=== PATIENT | female | born 2005 | race Caucasian/White ===

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

== ENCOUNTER 2025-06-05 10:31 | Emergency (ER) | payer OTHER, SELFPAY ==
--- OUTSIDE RECORDS SUMMARY | 2024-03-01 08:45 | XMS_ITS ---
Author Organization [facility] Address [address] [place] [address] Care Team Providers Care Bird Raiser Name Role Phone Jessica Kinney Primary Care Provider Marj Bertrand [phone] Allergies No Known Allergies REASON FOR VISIT F/U ER for bleeding Encounters Encounter Location Date Provider Diagnosis [place] [address] [place] [address] 03/01/2024 Marj Bertrand Plan Of Treatment No Information Progress Notes * Gabrielle BETHDOB:[birth year] (20 yo F)Acc No.[id number]:03/01/2024 Progress Notes Patient: Gabrielle DOWNEY Provider: Piper Bertrand CNP :2005 A ge:18 Y S ex:Female Date:03/01/2024 Address:[address] [id number] Pcp:Jessica Kinney Subjective: * Chief Complaints: * 1 . F/U ER for bleeding. * Medical History: M edical History Verified. 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 B irth Control: L iletta. S exual Activity C urrently sexually active, male partner. S exually Tranmitted Disease (STD)?None. A bnormal Pap Smear N ever Had One. D enies H/O Colposcopy. * OB History: G PAL: G [id number]. * Allergies: N .K.D.A. Objective: * Vitals: Assessment: Plan: * Treatment: * Preventive Medicine: YOUR PREVENTIVE WELLNESS PLAN: B reast Cancer Screening (Mammogram): M y last mammogram was done on: N ever, Under 40yrs. C ervical Cancer Screening (Pap Smear): M y last Pap smear was done on: N ever, Under 21 years old. O steoporosis Screening (Bone Density Measurement): M y last bone density was done on: N ever, Under 65yr. C olorectal Cancer Screening: L ast Done Colonoscopy N ever, Under 45yr. D epression Screening: S creening for depression was last done on: 0 01/30/2024. * Images: Billing Information: * Visit Code: * Procedure Codes: * Electronic signature of Jeronimo Bertrand CNP on 06/05/2025 at 10:33 AM CDT Sign off status: Pending * Provider: Piper Bertrand CNP Date: 03/01/2024 Generated for Magnus millan/Jony/Martaitting on: 0 06/05/2025 10:33 AM CDT
--- OUTSIDE RECORDS SUMMARY | 2024-03-01 10:00 | XMS_ITS ---
Author Organization [facility] Address [address] [place] [address] Care Team Providers Care Personal Banker Name Role Phone Jessica Kinney Primary Care Provider Jessica Salvador [phone] Encounters Encounter Location Date Provider Diagnosis [address] [id number] 03/01/2024 Jessica Salvador Plan Of Treatment No Information Progress Notes * Gabrielle BETHDOB:[birth year] (20 yo F)Acc No.[id number]:03/01/2024 Patient: Gabrielle DOWNEY Provider: Kristian Salvador DO :2005 A ge:18 Y S ex:Female Date:03/01/2024 Address:[address] [id number] Pcp:Jessica Kinney Subjective: * Chief Complaints: * * Medical History: Objective: * Vitals: Assessment: Plan: * Treatment: * Images: Billing Information: * Visit Code: * Procedure Codes: * Electronic signature of Cely Salvador DO on 06/05/2025 at 10:33 AM CDT Sign off status: Pending * Provider: Kristian Salvador DO Date: 03/01/2024 Generated for Printi ng/Faxing/eTransmitting on: 0 06/05/2025 10:33 AM CDT
--- OUTSIDE RECORDS SUMMARY | 2024-03-01 10:45 | XMS_ITS ---
Author Organization [facility] Address [address] [place] [address] Care Team Providers Care Stenciler Name Role Phone Jessica Kinney Primary Care Provider Jessica Salvador Unavailable [phone] Allergies No Known Allergies REASON FOR VISIT IUD placed 02/14/24, heavy bleeding ultrasound prior K A Medications Medication SIG (Take, Route, Fr equency, Duration) Notes Start Date End Date Status Liletta Active Valtrex 500 MG 1 tablet Orally Once a day; Duration: 10 days 01/31/2024 Active Social History Tobacco Use: Social History Observation Description Date Details (start date - stop date) Never Smoker NA - NA Tobacco Control (Standard) Question Answer Notes Tobacco use: Nonsmoker Encounters Encounter Location Date Provider Diagnosis [facility] [address] [id number] 03/01/2024 Jessica Salvador Plan Of Treatment No Information Progress Notes * Gabrielle BETHDOB:[birth year] (20 yo F)Acc No.[id number]:03/01/2024 Progress Notes Patient: Gabrielle DOWNEY Provider: Kristian Salvador DO :2005 A ge:18 Y S ex:Female Date:03/01/2024 Address:[facility] [address] [id number] Pcp:Jessica Kinney Subjective: * Chief Complaints: * 1 . IUD placed 02/14/24, heavy bleeding ultrasound prior JMK RMA. * Medical History: M edical History Verified. 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 B irth Control: L iletta. S exual Activity C urrently sexually active, male partner. S exually Tranmitted Disease (STD) N one. A bnormal Pap Smear N ever Had One. D enies H/O Colposcopy. * OB History: G PAL: G [id number]. * Surgical History: D enies Past Surgical History. * Hospitalization/Major Diagno stic Procedure: D enies Past Hospitalization. * Family History: N on-Contributory. * Social History: T obacco Use: T obacco Control (Standard) T obacco use: N onsmoker D rugs/Alcohol: C affeine I ntake: 1 -2 cups per day Do you smoke marijuana?: Denies. Do you drink alcohol?: Yes. M iscellaneous: E xercise: Patient exercises. Marital status: single. * Medications: T javid Toth , Taking Valtrex 500 MG Tablet 1 tablet Orally Once a day , Discontinued NuvaRing , Discontinued Cytotec 200 MCG Tablet 1 tablet Orally once the night prior to procedure , Medication List reviewed and reconciled with the patient * Allergies: N .K.D.A. Objective: * Vitals: Assessment: Plan: * Treatment: * Preventive Medicine: YOUR PREVENTIVE WELLNESS PLAN: B reast Cancer Screening (Mammogram): My last mammogram was done on: N ever, Under 40yrs C ervical Cancer Screening (Pap Smear): My last Pap smear was done on: N ever, Under 21 years old O steoporosis Screening (Bone Density Measurement): My last bone density was done on: N ever, Under 65yr C olorectal Cancer Screening: Last Done Colonoscopy N ever, Under 45yr D epression Screening: Screening for depression was last done on: 0 01/30/2024 * Images: Billing Information: * Visit Code: * Procedure Codes: * Electronic signature of Cely Salvador DO on 06/05/2025 at 10:33 AM CDT Sign off status: Pending * Provider: Kristian Salvador Date: 0 03/01/2024 Generated for Magnus millan/Jony/Yomi on: 0 06/05/2025 10:33 AM CDT
[2025-06-05] VITALS (8 sets, daily range): BP systolic 103–126; BP diastolic 60–76; PULSE 110–121; RESP 25; TEMP 38.3–38.8; O2SAT 95–100; BMI 21.8
--- OUTSIDE RECORDS SUMMARY | 2025-06-05 10:33 | XMS_ITS | Clinical Summary ---
Author Organization [place] Address [address] [place] [address] Care Team Providers Care Call Or Contact Centre Manager Name Role Phone No Ref-Primary, Physician Primary Care Provider Mariama Quan DEPUTY INSURANCE COMMISSIONER Unavailable [phone] Allergies No known active allergies Medications omeprazole (PRILOSEC) [address] capsule Take 20 mg by mouth daily Active Active Problems No known active problems Social History Tobacco Use Types Packs/Day Years Used Date Smoking Tobacco: Never Smokeless Tobacco: Never Tobacco Cessation:Counseling Given: Not Answered Adolescent Education Answer Date Record ed Getting School Help Needed Not on file 06/10 Comments No Sex and Gender Information Value Date Recorded Sex Assigned at Not on file Legal Sex Female 4:57 PM CDT Gender Identity Not on file Sexual Orientation Not on file Last Filed Vital Signs Vital Sign Reading Time Taken Comments Blood Pressure 117/75 02/28/2024 2:06 AM CDT Pulse 86 02/28/2024 2:06 AM CDT Temperature 37.6 C (99.7 F) 02/27/2024 10:25 PM CDT Respiratory Rate 16 02/27/2024 10:25 PM CDT Oxygen Saturation 99% 02/28/2024 2:06 AM CDT Inhaled Oxygen Concentration - - Weight 59.7 kg (131 lb 9.6 oz) 02/27/2024 10:25 PM CDT Height 167.6 cm (5' 6) 02/27/2024 10:25 PM CDT Body Mass Index 21.24 02/27/2024 10:25 PM CDT Plan of Treatment Health Maintenance Due Date Last Done Comments ADVANCE CARE PLANNING 2005 ANNUAL REVIEW OF HM ORDERS 2005 CHLAMYDIA SCREENING 2005 HIV SCREENING 2020 HEPATITIS C SCREENING 2023 YEARLY PREVENTIVE VISIT 02/28/2024 02/27/2023, 07/12 PHQ-2 (once per calendar year) 2024 COVID-19 VACCINE (3 - season) 2025 08/08/2021, 04/29/2021 INFLUENZA VACCINE (#1) 2025 , 07/12/2021, 07/09/2018, Additional history exists DTAP/TDAP/TD VACCINE (7 - Td or Tdap) 04/12/2027 04/12/2017, 04/02/2010, 09/04/2006, Additional history exists ZOSTER VACCINE (1 of 2) 2055 PNEUMOCOCCAL VACCINE: PEDIATRICS (0 to 5 YEARS) AND AT-RISK PATIENTS (6 to 49 YEARS) Aged Out 03/10/2006, 2005, 2005, Additional history exists No longer eligible based on patient's age to complete this topic HEPATITIS B VACCINE Completed 09/04/2006, 2005, 2005, Additional history exists MENINGITIS VACCINE Completed 07/12/2021, 04/12/2017 HPV VACCINE Completed 03/25/2022, 06/19, 04/20/2020 MENINGITIS B VACCINE Completed 05/04/2023, 02/28/20 23 Insurance [employer] Care Teams Call Or Contact Centre Manager Relationship Specialty Start Date End Date No Ref-Primary, Physician PCP - General 07/22/22 Mariama Quan NP [address] [place] [address] Assigned PCP 03/10/24
--- OUTSIDE RECORDS SUMMARY | 2025-06-05 10:34 | XMS_ITS | Clinical Summary ---
Author Organization [facility] Address [address] [place] [id number] Care Team Providers Care Spark Tester Name Role Phone Misty Kwon MD Primary Care Provider Allergies No known active allergies Medications spironolactone (ALDACTONE) 25 mg tablet Take 50 mg by mouth once daily in the morning. 4 Active tretinoin (RETIN-A) 0.025 % cream Apply topically to affected area(s) at bedtime. 4 Active levonorgestre1 (Liletta) 20.4 mcg/24 hr (8 yrs) 52 mg intrauterine device (IUD) Inject 1 Device intrauterine every 6 years. 4 Active clindamycin (CLEOCIN-T) 1 % lotion Apply topically to affected area(s) two times daily. 4 Active hydrOXYzine HCL (ATARAX) 25 mg tabletIndication s:Anxiety with flying Take 1-2 Tablets (25-50 mg) by mouth every 8 hours if needed for Anxiety. 25 Tablet 4 Active famotidine (PEPCID) 20 mg tabletIndication s:Abdominal pain, generalized Take 1 Tablet (20 mg) by mouth 2 times daily if needed for GI Upset. 90 Tablet 1 4 Active fluticasone (50 mcg per actuation) nasal solution (FLONASE)Indicat ions:Nasal congestion SHAKE LIQUID AND USE 2 SPRAYS IN EACH NOSTRIL DAILY 16 g Active Active Problems Problem Noted Date Diagnosed Date Esophagogastric junction outflow obstruction IUD (intrauterine device) in place 07/05/2024 Resolved Problems Problem Noted Date Diagnosed Date Resolved Date Laceration of head 03/19/2009 8 Overview (03/19/2009): 03/14/07 FOREHEAD URI (upper respiratory infection) 03/19/2009 01/26/2018 Otitis media 03/19/2009 01/26/2018 Screening for lead poisoning 03/19/2009 01/26/2018 Overview (03/19/2009): 03/10/06 Lead <3 Encounters Date Type Department Care Team Description 05/30/2025 7:15 AM CDT Telemedicine [facility] [address] [place] [address] Kiya Chavez [facility] Individual Therapy 05/30/2025 Travel 05/02/2025 9:00 AM CDT Office Visit [facility] [address] [place] [address] Kriss Parker [facility] Mental Health Consultants Visit; Trmt Plan 05/02/2025 Travel 04/28/2025 Travel 04/02/2025 Transcribe Orders Customer Experience [facility] [phone] [place] Cochran DO 04/02/2025 Nurse Triage [place] [id number] [facility] [address] [place] [address] Misty Kwon MD Abdominal Pain 03/31/[address] [place], [place] [phone] Misty Kwon MD Lab (TB/Mantoux test) 03/29/2025 12:20 PM CDT Office Visit [facility] [address] [place] [phone] Ivana Sahni MD Influenza Like Illness (Sore throat x couple days, productive cough, diarrhea x 1 week and nasal congestion ) 03/29/2025 Travel from Last 3 Months Immunizations Immunization Administration Dates Next Due COVID-19 vaccine (Lionseek-Bio NTech 30mcg/0.3mL) PF, MDV 04/29/2021 DTaP-HIB (TriHIBIT) 09/04/2006 [id number] (Pediarix) 09/04/2006,08/19,2005,05/09 DTaP-IPV (Kinrix) 04/02/2010 HIB PRP-OMP (PedvaxHIB) 09/04/2006,2005, HPV 9 (Gardasil 9) 03/25/2022,07/12/2021, 020 Hepatitis A (Peds) 03/27/2007,03/10/2006 INFLUENZA, IIV3 PF (AGE >= 6 MO) 07/08/2024 Influenza, IIV3 (Age 6-35 mos) 11/22/2007,2006 Influenza, IIV3 (Age >=3 years) 08/12/20 08,08/12/2008,11/22/2007,10/27,2005 Influenza, IIV4 07/01/2022,07/12/2021,07/09/2018 Influenza,LAIV3 Live Intrana dawson (Flumist) 05/30/2014,08/12/2008 Influenza,LAIV4 Live Intrana dawson (Flumist) 05/30/2014,08/12/2008 MENINGOCOCCAL VACCINE 2 VIAL 2MO-55YO (MENVEO) 07/12/2021,04/12/2017 MMR 04/02/2010 MMRV 09/04/2006 Meningococcal B 05/04/2023,02/27/2023 Pneumococcal conj 7-Valent (Prevnar 7) 0 03/10/2006,2005,2005,05/09 Tdap 04/12/2017 Varicella Vaccine 04/02/2010,09/04/2006 Family History Medical History Relation Name Comments Asthma Brother Good Health Brother Allergies Father Diabetes Father Heart failure Father Hypertension Maternal Grandfather Cancer Maternal Grandmother Diabetes Maternal Grandmother Asthma Mother Cancer Paternal Grandfather Diabetes Paternal Grandfather Hyperlipidemia Paternal Grandfather High Cholesterol Diabetes Paternal Grandmother Heart failure Paternal Grandmother Relation Name Status Comments Brother Father Maternal Grandfather Maternal Grandmother Mother Paternal Grandfather Paternal Grandmother Social History Tobacco Use Types Packs/Day Years Used Date Smoking Tobacco: Never Smokeless Tobacco: Never Alcohol Use Standard Drinks/Week Comments Yes 0 (1 standard drink = 0.6 oz pur e alcohol) socially/weekends PHQ-2 Answer Date Recorded PHQ-2 TOTAL SCORE 1 05/30/2025 Social Connections Answer Date Recorded Do you often feel lonely or isolated from those around you? 0 03/29/2025 Financial Resource Strain Answer Date R ecorded Difficulty of Paying Living Expenses 3 03/29/2025 Difficulty of Paying Living Expenses Not on file 03/29/2025 Food Insecurity Answer Date Recorded Do you worry your food will run out before you are able to buy more? 1 03/29/2025 Transportation Needs Answer Date Record ed Does lack of transportation keep you from medica l appointments? 1 03/29/2025 Does lack of transportation keep you from work, meetings or getting things that you need? 1 03/29/2025 Housing Stability Answer Date Recorded What is your housing situation today? 1 03/29/2025 Utilities Answer Date Recorded Do you have trouble paying f or utilities (for example, heat, electricity, water, phone)? 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 Sexual Orientation Not on file Obstetrics History Last Filed Vital Signs Vital Sign Reading Time Taken Comments Blood Pressure 137/74 03/29/2025 12:31 PM CDT Pulse 86 03/29/2025 12:31 PM CDT Temperature 37.2 C (99 F) 03/29/2025 12:31 PM CDT Respiratory Rate 16 03/29/2025 12:3 1 PM CDT Oxygen Saturation 99% 03/29/2025 12: 31 PM CDT Inhaled Oxygen Concentration - - Weight 61.1 kg (134 lb 12.8 oz) 07/08/2024 3:19 PM CDT Height 169.2 cm (5' 6.61) 07/08/2024 3:19 PM CD T Body Mass Index 21.36 07/08/2024 3:19 PM CDT Plan of Treatment Upcoming Encounters Date Type Department Care Team (Late st Contact Info) Description 06/27/2025 7:15 AM CDT Telemedicine [facility] [address] [place] [address] Kiya Chavez, [facility] [address], [place] [phone] Health Maintenance Due Date Last Done Comments HIV for age 15-65 2020 Chlamydia for age 16-24 2021 Hepatitis C screening for age 18-79 2023 COVID-19 vaccine series ( season) 2025 08/08/2021, 04/29/2021 Influenza Vaccine (#1) 2025 , 07/01/2022, 07/12/2021, Additional history exists BMI (ht and wt on same day) for age 18+ 07/08/2025 07/08/2024 Well Child Check for age 3-20 07/08/2025 07/08/2024, 02/27/2023, 07/12/2021, Additional history exists Depression screening for age 12+ 05/30/2026 05/30/2025, 05/02/2025, 07/10/2024, Additional history exists Tetanus booster 04/12/2027 04/12/2017 RSV vaccine for adults or (1 - 1-dose 75+ series) 2080 Pneumococcal series for age 6-49 Aged Out 03/10/2006, 2005, 2005, Additional history exists No longer eligible based on patient's age to complete this topic Hepatitis B series for 19+ Completed 09/04, 2005, 2005, Additional history exists Meningococcal series for age 11-21 Completed 07/12/2021, 04/12/2017 HPV series for age 9-45 Completed 03/25/20 22, 07/12/2021, 04/20/2020 Procedures Procedure Name Priority Date/Time Associated Diagnosis Comments THROAT RAPID STREP ONLY CLINIC Routine 03/29/2025 1:01 PM CDT Sore throat STREP A PCR Routine 03/29/2025 12:20 PM CDT Sore throat from Last 3 Months Results * THROAT RAPID STREP ONLY CLINIC (03/29/2025 1:01 PM CDT) POC, GROUP A STREP NOT DETECTED NOT DETECTED [facility] Comment: The [place] [employer] recommends that a throat culture be performed if a rapid group A streptococcus assay yields a negative result. Dispatch recommends Streptococcus, Group A culture. Throat SPECIMEN FROM THROAT / Unknown 03/29/2025 1:01 PM CDT 03/29/2025 1:01 PM CDT Ivana Sahni MD MICROBIOLOGY Final Result [facility] [address] [place] [address] [facility] [address] [place] [phone] * STREP A PCR (03/29/2025 12:20 PM CDT) GROUP A STREP Negative 03/29/2025 11:00 PM CDT [facility] Throat SPECIMEN FROM THROAT / Unknown Non-Blood / Unknown 03/29/2025 12:20 PM CDT 03/29/2025 1:03 PM CDT Ivana Sahni MD MICROBIOLOGY Final Result [facility] [address] [place] [address], [place] from Last 3 Months Insurance Care Teams Spark Tester Relationship Specialty Start Date End Date Misty Kwon MD [address] [place] [address] PCP - General Family Practice 07/08/24
--- OUTSIDE RECORDS SUMMARY | 2025-06-05 10:34 | XMS_ITS | Clinical Summary ---
Author Organization [facility] Address [address], [place] [address] Care Team Providers Care Supervisor Blasting Name Role Phone No Primary/Referring, Phy Primary Care Provider Unavailable Source Comments You are receiving this document as you are listed as the primary care provider,follow-up provider, or the patient has been referred to you for consultation.This is in compliance with the Medicare and[facility] EHR Incentive Program,which states Providers who transition their patient to another setting of careor provider of care or refers their patient to another provider of care shouldprovide summary care record for each transition of care or referral. [facility] Allergies No known active allergies Medications ibuprofen (MOTRIN) 600 MG tablet Take 400 mg by mouth every 6 hours as needed for Pain. 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 Gender Identity Not on file Sexual Orientation Not on file Last Filed Vital Signs Vital Sign Reading Time Taken Comments Blood Pressure 111/72 05/31/2021 12:11 PM CDT Pulse 65 05/31/2021 12:11 PM CDT Temperature 36.9 C (98.5 F) 05/31/2021 12:11 PM CDT Respiratory Rate - - Oxygen Saturation 100% 05/31/2021 12:11 PM CDT Inhaled Oxygen Concentration - - Weight 58.1 kg (128 lb) 05/31/2021 12:11 PM CDT Height 167.6 cm (5' 6) 05/31/2021 12:11 PM CDT Body Mass Index 20.66 05/31/2021 12:11 PM CDT Plan of Treatment Health Maintenance Due Date Last Done Comments Chlamydia 2005 Hep C Screening (Preventive Services) 2005 MenB Immunization Discussion 2005 HPV Vaccine (2 - 3-dose series) 05/18/2020 04/20/2020 HIV Screening (Preventive Services) 2021 Adult Preventive Visit 2023 HepB Vaccine (1) 2024 COVID-19 Vaccine (2023- season) 2025 Influenza Vaccine (#1) 2025 8, 05/30/2014, 08/12/2008, Additional history exists DTaP/Tdap/Td Vaccine (7 - Tdap) 04/12/2027 04/12/2017, 04/02/2010, 09/04/2006, Additional history exists Zoster/Shingles Vaccine (1 of 2) 2055 Pneumococcal Vaccine Aged Out 03/10/2006, 2005, 2005, Additional history exists No longer eligible based on patient's age to complete this topic Hib Vaccine Completed 09/04/2006, 06/19, 2005 HepA Vaccine Completed 03/27/2007, 03/10/2006 IPV (Polio) Vaccine Completed 04/02/2010, 2005, 2005, Additional history exists MCV4 Vaccine Aged Out 04/12/2017 No longer eligi ble based on patient's age to complete this topic Insurance SELF INSURED [employer] SELF INSURED [employer] Care Teams Supervisor Blasting Relationship Specialty Start Date End Date No Primary/Referring, Phy PCP - General 10/14/16
--- OUTSIDE RECORDS SUMMARY | 2025-06-05 10:34 | XMS_ITS | Patient Health Record ---
Author Organization [facility] Address [address] [place] [address] Care Team Providers Care Body Shop Floorperson Name Role Phone Jessica Kinney Primary Care Provider Irby, Aleida Radha [phone] Allergies No Known Allergies Results Component Value Reference Range Notes MVP (Multiplex Vaginitis) (I H) Reviewed date:09/12/2024 11:01:31 AM Interpretation: Performing Lab: Notes/Report: Senior Application Security Consultant: [employer] Lot: [id number], Expiry: 2025-04 APV Xpert ([id number]), [place] Chlamydia [facility] Gonorrhea Reviewed date:09/13/2024 12:39:04 AM Interpretation: Performing Lab:[id number], [id number] Robert Arellano Notes/Report: CHLAMYDIA TRACHOMATIS RNA, TMA, UROGENITAL NOT DETECTED NOT DETECTED NEISSERIA GONORRHOEAE RNA, TMA, UROGENITAL NOT DETECTED NOT DETECTED COMMENT The analytical performance characteristics of this assay, when used to test SurePath(TM) specimens have been determined by [employer]. The modifications have not been cleared or approved by the FDA. This assay has been validated pursuant to the CLIA regulations and is used for clinical purposes. For additional information, please refer to https://education.[employer].com/faq/ZWL198 (This link is being provided for information/ educational purposes only.) Reason For Referral No Information Medications Medication SIG (Take, Route, Frequency, Duration) Notes Start Date End Date Status Spironolactone 25 MG 1 tablet Orally Active Valtrex 500 MG 1 tablet Orally Once a day; Duration: 10 days 01/31/2024 Not-Taking Liletta Active Diflucan 150 MG 1 tablet Orally Take every 72 hours x 3 doses; Duration: 6 days please send six tabs as [place] 1 [place] 09/10/2024 Active Social History Tobacco Use: Social History Observation Description Date Details (start date - stop date) Never Smoker NA - NA Tobacco Control (Standard) Question Answer Notes Tobacco use: Nonsmoker Vital Signs Blood pressure diastolic 60 mm Hg 09/10/2024 Height 65.50 in 09/10/2024 BMI Percentile 50.09 % 09/10/2024 Blood pressure systolic 106 mm Hg 09/10/2024 Weight 132.1 lbs 09/10/2024 BMI 21.65 kg/m2 09/10/2024 Encounters Encounter Location Date Provider Diagnosis [facility] [address] [place] [address] 09/10/2024 Aleida Irby Vaginitis N76.0 ; Screening for chlamydial disease Z11.8 and Screening for STD (sexually transmitted disease) Z11.[address] [phone] 09/10/2024 Aleida Irby Acute vaginitis N76.0 and Screening for STDs (sexually transmitted diseases) Z11.[address] [address] 09/10/2024 Aleida Irby [address] [address] 09/10/2024 Jessica Kinney Assessments Encounter Date Diagnosis (ICD Code) Assessment Notes Treatment Notes Treatment Clinical Notes Section Notes 09/10/2024 Acute vaginitis (ICD-10 - N76.0) 09/10/2024 Screening for STDs (sexually transmitted diseases) (ICD-10 - Z11.3) 09/10/2024 Vaginitis (ICD-10 - N76.0) 09/10/2024 Screening for chlamydial disease (ICD-10 - Z11.8) 09/10/2024 Screening for STD (sexually transmitted disease) (ICD-10 - Z11.3) 09/10/2024 Other MVP collected. Agrees to recommended gonorrhea/chlamyd ia testing. Exam consistent with significant amount of yeast will send oral treatment Q72 hours x 3 doses. OK to treat locally with OTC 7 day monistat as well. She is traveling to [place] on the for 1 month so will send extra doses in case symptoms flare there. Discussed treatment options should swab show yeast of BV. If negative will reassess options for symptom management. 20 minutes spent in chart review, discussing with patient and documentation regarding: vaginitis Plan Of Treatment No Information Insurance Providers Payer Name Payer Address Payer Phone Subscriber Number Group Number Insured Name Patient Relationship to Insured Coverage Start Date Coverage End Date [facility] [address] [place] [id number] Self - patient is the insured Medical (General) History Medical History History ICD Code Acne
--- NOTE | 2025-06-05 10:47 | ED_ITS ---
HPI - General Adult General Time Seen by Provider: 10:47 Date Seen: 06/05/25 Chief complaint: Sore Throat Stated complaint: difficulty breathing, from Time Seen by Provider: 06/05/25 10:35 Source: patient and RN notes reviewed Mode of arrival: ambulatory Limitations: no limitations History of Present Illness HPI narrative: This 20-year-old female was sent from urgent care with concern of significant symptoms and tonsillitis, rule out peritonsillar abscess. 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 Today is now . She has had a sore throat. She has had fevers, body aches. She is feeling worse today. She feels like she is having difficulty swallowing due to throat pain and difficulty breathing. She is severely fatigued. Derrick Malik from urgent care appropriately triage this patient to the ER. He felt she was sick enough that he was not even going to starting workup there. I did take the phone call from him. He also noted that she had a scarlatina type rash. Patient has an IUD for contraception. She has not eaten today. Related Data Home Medications ?Medication ?Instructions ?Recorded ?Confirmed clindamycin phosphate 1 % lotion topical BID 06/10/24 06/05/25 levonorgestrel 20.4 mcg/24 hr (up 1 device intrauterin e ONCE 06/10/24 06/05/25 to 8 yrs) 52 mg intrauterine device (Liletta) spironolactone 25 mg tablet 25 mg PO BID 06/10/2405/19 tretinoin 0.025 % topical cream applic topical DAILY 0 06/10/24 06/05/25 Previous Rx's ?Medication ?Instructions ?Recorded fluconazole 150 mg tablet 150 mg PO Q3D 2 doses #2 tab s 06/10/24 Allergies Allergy/AdvReac Type Severity Reaction Status Date / Time No Known Drug Allergies Allergy Verified 07/31/24 15:15 Review of Systems Status of ROS: Reports: 6 or more systems reviewed and unremarkable except as noted in History and below PFSH PFS Social History Smoking Status: Smoker, status unknown Do you use any of these nicotine containing products: None Second hand tobacco smoke exposure: No How often do you have a drink containing alcohol: never How often do you have six or more drinks on one occasion: Never AUDIT-C Alcohol total score: 0 Non-prescribed substance use: denies use Exam Const: Vital Signs, click to edit/add: Vital Signs - 24 hr 06/05/25 10:36 06/05/25 10:52 06/05/25 10:56 Temperature 101.8 F H Pulse Rate 116 H Pulse Rate [Left P ulse Oximeter] 121 H Respiratory Rate 25 H Blood Pressure Blood Pressure [Le ft Upper Arm] 126/76 Pulse Oximetry 99 99 100 Oxygen Delivery Me thod Room Air Room Air 06/05/25 11:00 06/05/25 11:30 06/05/25 11:59 Temperature 100.9 F H Pulse Rate 110 H 116 H 111 H Pulse Rate [Left P ulse Oximeter] Respiratory Rate Blood Pressure 105/70 Blood Pressure [Le ft Upper Arm] Pulse Oximetry 99 99 95 Oxygen Delivery Me thod Room Air Room Air Room Air 06/05/25 12:00 06/05/25 12:01 Temperature Pulse Rate 113 H 112 H Pulse Rate [Left P ulse Oximeter] Respiratory Rate Blood Pressure 103/60 Blood Pressure [Le ft Upper Arm] Pulse Oximetry 95 96 Oxygen Delivery Me thod Room Air Room Air This 20-year-old female is alert and interactive but looks like she does not feel well at all. Sclera clear, muffled voice but breathing independently a on room air, no stridor. She has some trismus but is able to open her mouth, can see enlarged tonsils, do not necessarily feel 1 side is worse than the other. She has some erythema onto the soft palate, no uvula swelling, there is some erythematous stippling on the palate, her oropharynx certainly looks like strep pharyngitis. Mucosa is hydrated. Neck supple but anterior adenopathy without fluctuance noted. She has some tenderness in her neck when I palpate. Lungs are clear, good air entry, no wheezing or crackles, mildly tachypneic but no accessory muscle use. CV fast but regular, no murmur. Abdomen is soft, nontender, nondistended, no organomegaly. Documenting provider has reviewed patient's vital signs: yes Course Course ED Course: This patient is significantly symptomatic in certainly has tonsillitis. Will do soft tissue neck CT to rule out any peritonsillar abscesses. We are going to proceed with IV fluids, dexamethasone, Unasyn and give her IV Tylenol. Will get appropriate labs which will include the triple viral swab, strep testing, blood work and mono spot. I have no immediate concerns for her airway at this time. Reevaluation(s) Time of Reevaluation #1: 11:52 Reevaluation #1: Saw just a couple walking back from her CT scan, she looks much better. She states she feels better. Time of Reevaluation #2: 12:56 Reevaluation #2: Have reviewed patient's CT with her. Review the incidental finding, have spoken with Dr. Estrada. He recommends MRI imaging for follow-up, this certainly can be done non emergently. Reviewed with patient she could have congenital anomaly responsible for this finding. We are going to see if she can take some oral ibuprofen and tolerate fluids. If she can do so, plan on discharge to home for outpatient management. She looks 100% better right now. This patient is asking about getting her tonsils out, she can talk to ENT about that. She reports recurrent tonsillar problems. Time of Reevaluation #3: 13:40 Reevaluation #3: Did speak with Rafael's dad, we reviewed the incidental findings and the plan of care. We will do an outpatient CT with IV contrast of her head to further evaluate incidental opacification of the left olfactory recess. We will get her Dr. Estrada's number to get scheduled for follow up. Vital Signs Vital signs: Initial Vital Signs Temperature 101.8 F H 06/05/25 10:36 Temperature Source Temporal Artery Scan 06/05/25 10:36 Pulse Rate 121 H 06/05/25 10:36 Pulse Rhythm Regular 06/05/25 10:36 Pulse Strength 3+ Normal 06/05/25 10:36 Respiratory Rate 25 H 06/05/25 10:36 Blood Pressure 126/76 06/05/25 10:36 Blood Pressure Mean 92 06/05/25 10:36 Blood Pressure Position Supine 06/05/25 10:36 Pulse Oximetry 99 06/05/25 10:36 Oxygen Delivery Method Room Air 06/05/25 10:36 Vital Signs Temperature 101.8 F H 06/05/25 10:36 Pulse Rate 121 H 06/05/25 10:36 Respiratory Rate 25 H 06/05/25 10:36 Blood Pressure 126/76 06/05/25 10:36 Pulse Oximetry 99 06/05/25 10:36 Oxygen Delivery Method Room Air 06/05/25 10:36 Temperature 100.9 F H 06/05/25 11:59 Pulse Rate 112 H 06/05/25 12:01 Respiratory Rate 25 H 06/05/25 10:36 Blood Pressure 103/60 06/05/25 12:01 Pulse Oximetry 96 06/05/25 12:01 Oxygen Delivery Method Room Air 06/05/25 12:01 Medications Administered Medications: Discontinued Medications Generic Name Dose Route Start Last Admin Trade Name Freq PRN Reason Stop Dose Admin Dexamethasone 10 mg 06/05/25 10:53 06/05/25 11:07 Dexamethasone 10 Mg/Ml Pf IVP 06/05/25 10:54 10 mg ONCE ONE Administration Sodium Chloride 1,000 mls @ 1,000 mls/hr 06/05/25 10:52 06/05/25 11:56 0.9 % Sodium Chloride 1000 Ml IV 06/05/25 11:51 Infused .Q1H LESLIE Infusion Acetaminophen 1,000 mg in 100 mls @ 400 mls/hr 06/05/25 10:51 06/05/25 11:08 Acetaminophen Inj IVPB 06/05/25 11:05 400 mls/hr ONCE ONE Administration Ampicillin Sodium/Sulbactam 100 mls @ 200 mls/hr 06/05/25 10:53 06/05/25 11:40 Sodium 3 gm/ Sodium Chloride IVPB 06/05/25 10:54 200 mls/hr ONCE ONE Administration Ibuprofen 600 mg 06/05/25 13:01 06/05/25 13:21 Ibuprofen 200 Mg Tablet PO 06/05/25 13:02 600 mg ONCE ONE Administration Ondansetron HCl 4 mg 06/05/25 10:51 06/05/25 11:06 Ondansetron 2 Mg/Ml Inj IVP 06/05/25 10:52 4 mg ONCE ONE Administration Medical Decision Making Lab Data Lab results reviewed: Yes I reviewed the patient's lab results Labs: Lab Results 06/05/25 06/05/25 06/05/25 Range/Units 10:52 10:54 10:55 WBC 22.98 H (4.50-11.00) K/uL RBC 4.28 (4.00-5.20) m/uL Hgb 13.1 (12.0-16.0) gm/dL Hct 37.7 (33.0-51.0) % MCV 88 (80-100) fL MCH 31 (26-34) pg MCHC 35 (32-36) gm/dL RDW Coeff of Kvng 11.4 L (11.5-15.5) % Plt Count 401 (140-440) K/uL Neut % (Auto) 85.3 H (42.0-72.0) % Lymph % (Auto) 3.9 L (20-44) % [place] % (Auto) 10.3 (0.0-11.0) % Eos % (Auto) 0.1 (0.0-7.0) % Baso % (Auto) 0.1 (0.0-3.0) % Neut # (Auto) 19.60 H (1.7-7.0) K/uL Lymph # (Auto) 0.90 (0.90-2.90) K/uL [place] # (Auto) 2.40 H (0.00-0.90) K/UL Eos # (Auto) 0.00 (0.00-0.50) K/uL Baso # (Auto) 0.00 (0.00-0.30) K/uL Abs Immat Gran (auto) 0.10 (0.00-0.30) K/uL Imm/Tot Granulo (auto) 0.3 % Sodium 136 (135-149) mmol/L Potassium 4.3 (3.6-5.1) mmol/L Chloride 105 (96-114) mmol/L Carbon Dioxide 22 (20-32) mmol/L Anion Gap 9 (7-15) mEq/L BUN 14 (5-24) mg/dL Creatinine 0.8 (0.5-1.5) mg/dL Estimated Creat Clear 105.01 Estimated GFR 108 ml/min Glucose 92 (60-115) mg/dL Lactate 1.3 (0.5-1.9) mmol/L Calcium 9.2 (8.4-10.6) mg/dL C-Reactive Protein 4.2 H (0.5-1.0) mg/dL SARS-CoV-2 (PCR) Negative SARS-CoV-2 (Negative) Monoscreen Negative (Negative) Influenza Type A (PCR) Negative PCR FLU A (Negative) Influenza Type B (PCR) Negative PCR FLU B (Negative) RSV (PCR) Negative PCR RSV (Negative) Group A Strep DNA DETECTED A (Not Detectd) Imaging Data CT- Other: Attestation: I have reviewed the pertinent imaging results. Radiologist's impression: Patient: RAFAEL BETH Facility:?[facility] Patient ID:?[id number] Site Patient ID:?[id number]. Site :?[id number] Study:?CT-ST Neck w/ 66cc [id number] 11:51:02 AM Ordering Physician:Bertha Krishnan Final Report: INDICATION: Severe sore throat with difficulty swallowing COMPARISON: None. TECHNIQUE: CT of the neck with intravenous contrast (66 milliliters Isovue 370). FINDINGS: Mildly motion degraded exam. Large bilateral palatine tonsils which contact each other in the midline compatible with kissing tonsils. [place] stripe attenuation of the bilateral palatine tonsils. No peritonsillar abscess is detected. Clear lung apices. Normal thyroid. No retropharyngeal soft tissue swelling. Normal orbits. Normal salivary glands. Normal fatty attenuation in the bilateral parapharyngeal space. Normal epiglottis. Mildly enlarged mtkf-xmdupyx-uest-right bilateral level 2 and 3 cervical lymph nodes such as a 13 millimeter left level 2 node (12/16). No acute osseous findings. There is a medium-sized polyp versus mucous retention cyst in the right maxillary sinus. Overall minimal paranasal sinus mucosal thickening. Clear mastoid air cells. There is opacification of the left olfactory recess without definite additional imaging findings to suggest an aggressive mass lesion or a defect in the skull base. IMPRESSION: 1. CT findings compatible with tonsillitis. No peritonsillar abscesses detected. 2. Mildly enlarged zkhw-dfgyodn-wpju-right cervical lymph nodes, possibly reactive in the setting of tonsillitis. 3. Incidental opacification of the left olfactory recess without additional concerning CT findings. Recommend correlation with clinical history and discussion with ENT on a nonemergent basis regarding whether direct visualization would be clinically beneficial. Please note that all CT scans at this facility use dose modulation, iterative reconstruction, and/or weight-based dosing when appropriate to reduce radiation dose to as low as reasonably achievable. Dictated by Eze Cross MD @ 06/05/2025 12:17:15 PM (Electronic Signature) Discharge Plan Discharge Clinical Impression: Acute streptococcal tonsillitis Patient Disposition: Home, Self-Care Condition: Improved Instructions: Strep Throat (ED), Tonsillitis (ED) Additional Instructions: Start amoxicillin this evening, will take 500 mg 3 times a day to complete 10 days for treatment of strep tonsillitis. Can use Tylenol and ibuprofen per bottle directions as needed for symptom control. It is important to stay hydrated, take frequent small sips of fluids. May need to start with more soft foods for ease of swallowing. As you feel better, can resume your normal diet. The radiology department should contact you to get scheduled for CT with IV contrast of your head as follow-up of the incidental finding on your CT done here today. To get scheduled with Dr. Estrada, call [phone]. He has his appointments scheduled through the [facility], will need to tell them that you probably want to see him here in [place] for ease of being seen close to [facility]. If you are not improving over the next few days, feel you are worsening again at any point, need to return for further evaluation. Review handouts provided. Activity Level: Activity as Tolerated Discharge Diet: Regular Prescriptions: No Action spironolactone 25 mg tablet 25 mg PO BID clindamycin phosphate 1 % lotion topical BID tretinoin 0.025 % cream topical DAILY Liletta 20.4 mcg/24 hr (8 yrs) 52 mg intrauterine device 1 device intrauterine ONCE Rx Instructions: as a single dose fluconazole 150 mg tablet 150 mg PO Q3D Qty: 2 0RF Rx Instructions: may repeat second dose 72 hrs after first dose if symptoms persist Follow Up/Referrals: Provider,Not a Local [Primary Care Provider, Family Practice] Stand Alone Forms: [facility] Info Instructions
[2025-06-05] MEDS: ONDANSETRON 2 MG/ML inj 4 MG IVP (11:06)
[2025-06-05] MEDS: DEXAMETHASONE 10 MG/ML PF IVP (11:07)
[2025-06-05] MEDS: ACETAMINOPHEN INJ 1,000 MG/100 ML VIAL 400 MG IVPB (11:08)
[2025-06-05 11:10] LABS: Lactate* 1.3 mmol/L (0.5-1.9)
[2025-06-05 11:29] LABS: Chloride* 105 mmol/L (96-114); Potassium* 4.3 mmol/L (3.6-5.1); Sodium* 136 mmol/L (135-149)
[2025-06-05 11:32] LABS: Anion Gap 9 mEq/L (7-15); Blood Urea Nitrogen* 14 mg/dL (5-24); Calcium* 9.2 mg/dL (8.4-10.6); Carbon Dioxide* 22 mmol/L (20-32); Creatinine* 0.8 mg/dL (0.5-1.5); Est. Creatinine Clearance* 105.01; Estimated Glomerular Filt Rate 108 ml/min; Glucose* 92 mg/dL (60-115)
[2025-06-05 11:34] LABS: Hematocrit* 37.7 % (33.0-51.0); Hemoglobin* 13.1 gm/dL (12.0-16.0); Immature Granulocytes Pct Auto 0.3 %; Lymphocytes Absolute Auto 0.90 K/uL (0.90-2.90); Mean Corpuscular HGB Conc 35 gm/dL (32-36); Mean Corpuscular Hemoglobin 31 pg (26-34); Mean Corpuscular Volume 88 fL (80-100); RDW Coefficient of Variation % 11.4 % (11.5-15.5); Red Blood Count* 4.28 m/uL (4.00-5.20); White Blood Count* 22.98 K/uL (4.50-11.00)
[2025-06-05 11:34] LABS: Strep A DNA Probe* DETECTED (Not Detectd)
[2025-06-05] MEDS: AMPICILLIN/SULBACTAM 3 GM in 0.9 % SODIUM CHLORIDE Mini-bag 100 ML IVPB (11:40)
--- NOTE | 2025-06-05 11:40 | CRLHL7_ITS ---
For Patients: As a result of the Century Cures Act, medical imaging exams and procedure reports are released immediately into your electronic medical record. You may view this report before your referring provider. If you have questions, please contact your health care provider. INDICATION: Severe sore throat with difficulty swallowing COMPARISON: None. TECHNIQUE: CT of the neck with intravenous contrast (66 milliliters Isovue 370). FINDINGS: Mildly motion degraded exam. Large bilateral palatine tonsils which contact each other in the midline compatible with kissing tonsils. [place] stripe attenuation of the bilateral palatine tonsils. No peritonsillar abscess is detected. Clear lung apices. Normal thyroid. No retropharyngeal soft tissue swelling. Normal orbits. Normal salivary glands. Normal fatty attenuation in the bilateral parapharyngeal space. Normal epiglottis. Mildly enlarged egkn-ywtract-pdvz-right bilateral level 2 and 3 cervical lymph nodes such as a 13 millimeter left level 2 node (12/16). No acute osseous findings. There is a medium-sized polyp versus mucous retention cyst in the right maxillary sinus. Overall minimal paranasal sinus mucosal thickening. Clear mastoid air cells. There is opacification of the left olfactory recess without definite additional imaging findings to suggest an aggressive mass lesion or a defect in the skull base. IMPRESSION: 1. CT findings compatible with tonsillitis. No peritonsillar abscesses detected. 2. Mildly enlarged mosy-melokgg-xiac-right cervical lymph nodes, possibly reactive in the setting of tonsillitis. 3. Incidental opacification of the left olfactory recess without additional concerning CT findings. Recommend correlation with clinical history and discussion with ENT on a nonemergent basis regarding whether direct visualization would be clinically beneficial. Please note that all CT scans at this facility use dose modulation, iterative reconstruction, and/or weight-based dosing when appropriate to reduce radiation dose to as low as reasonably achievable. Dictated by Eze Cross MD @ 06/05/2025 12:17:15 PM (Electronically Signed)
[2025-06-05 11:45] LABS: Mono Screen* Negative (Negative)
[2025-06-05 11:49] LABS: PCR FLU A Negative PCR FLU A (Negative); PCR FLU B Negative PCR FLU B (Negative); PCR RSV Negative PCR RSV (Negative); SARS PCR* Negative SARS-CoV-2 (Negative)
[2025-06-05 11:57] LABS: Immature Granulocytes Abs Auto 0.10 K/uL (0.00-0.30); Slide Review Reflex No
[2025-06-05] MEDS: IBUPROFEN 200 MG TABLET 600 MG PO (13:21)
== END 2025-06-05 14:19 | disposition home or self-care (01) ==
PROVIDERS: Emergency Provider Family Medicine
DX: J03.00 Acute streptococcal tonsillitis, unspecified (principal)
CPT/HCPCS: 36415; 70491; 80048; 83605; 85025; 86140; 86308; 87631; 87651; 94761; 99284; 99285; A9270; J0131; J0295; J1100; J2405; J7030; Q9967

== ENCOUNTER 2025-06-16 17:39 | Outpatient (CLI) | payer OTHER, SELFPAY ==
--- NOTE | 2025-06-16 18:15 | CRLHL7_ITS ---
For Patients: As a result of the Century Cures Act, medical imaging exams and procedure reports are released immediately into your electronic medical record. You may view this report before your referring provider. If you have questions, please contact your health care provider. Indication: Left olfactory recess opacification. Technique: Multiplanar multisequence noncontrast MR images of the brain. Comparison: CT neck 06/05/2025. Findings: The ventricles and sulci are within normal limits for patient age. No mass effect or midline shift. No parenchymal signal abnormalities. No intracranial hemorrhage or pathologic extra-axial fluid collection. No diffusion restriction to suggest acute infarction. Incidental right cerebellar tonsillar ectopia. The major arterial flow voids of the skull base are preserved. Globes are symmetric. Mild paranasal sinus mucosal thickening. Small to moderate right maxillary sinus retention cyst or polyp. The mastoid air cells are clear. Impression: No acute intracranial abnormality. Dictated by Lamin Arreguin MD @ 06/16/2025 8:49:37 PM (Electronically Signed)
== END 2025-06-16 17:40 | disposition home or self-care (01) ==
LOC: MRI 17:39
PROVIDERS: Visit Provider Otolaryngology
DX: R93.0 Abnormal findings on diagnostic imaging of skull and head, not elsewhere classified (principal)
CPT/HCPCS: 70551